=== PATIENT | female | born 1970 | race Native Hawaiian/Other Pacific Islander ===

== ENCOUNTER 2017-01-19 11:31 | Emergency (ER) | payer OTHER ==
[~2017-01-19] VITALS: Ht 162.6 cm; Wt 54.4 kg
[2017-01-19] MEDS ORDERED: TRAZ50TA36 PO (12:05)
[2017-01-19] MEDS ORDERED: REQUIP1 MG OR (12:06)
[2017-01-19] MEDS ORDERED: VITAMIN D31000 UNI1 OR (12:06)
[2017-01-19] MEDS ORDERED: HYDR50CA21 PO (12:07)
[2017-01-19 12:39] LABS: PLATELET COUNT 505 K/uL (152-353)
[2017-01-19 12:50] LABS: POTASSIUM 3.5 mmol/L (3.6-5.2); SODIUM 135 mmol/L (136-145)
[2017-01-19 12:55] LABS: PARTIAL THROMBOPLASTIN TIME 26.9 SECONDS (24.5-33.6)
== END 2017-01-20 16:35 | disposition other institution (70) ==
LOC: ED 11:31
PROVIDERS: Family Medicine
DX: F28 Other psychotic disorder not due to a substance or known physiological condition (principal)
CPT/HCPCS: 36415; 80053; 80307; 80320; 80329; 81000; 81025; 82550; 84484; 85027; 85610; 85730; 93005; 96372; 99285; G0479; J1200; J1630; J2060; J3486